=== PATIENT | male | born 1970 | race Caucasian/White ===

== ENCOUNTER 2021-08-16 22:20 | Emergency (ER) | payer OTHER ==
[~2021-08-16] VITALS: Ht 175.3 cm; Wt 59.0 kg
[~2021-08-16 22:20] MED LIST: ASPI325EC PO; BACL10; Bactrim Ds Tab1 EACH PO; Cipro500 MG PO; ERYT.5TO OD; GLIP5 PO; HYDACE5 PO; LISI20 PO; Lamisil At24 GM TOP; Lamisil250 MG PO; METF850; METF850 PO; Norco 5-325 Ta1 EACH PO; OXYC5 PO; ROSU5 PO; SILSUL1TC TOP; TOBR.3OPSO OP; ZESTRIL40 MG PO
[2021-08-17] MEDS ORDERED: Percocet 5-3251 EACH PO (01:07)
== END 2021-08-17 01:43 | disposition home or self-care (01) ==
LOC: ER 22:20
DX: S72.401A Unspecified fracture of lower end of right femur, initial encounter for closed fracture (principal); I10 Essential (primary) hypertension; E11.9 Type 2 diabetes mellitus without complications; Z87.891 Personal history of nicotine dependence; Z96.643 Presence of artificial hip joint, bilateral; W19.XXXA Unspecified fall, initial encounter
CPT/HCPCS: 29505; 73502; 73552; 96374; 96375; 96376; 99284-25; A9270; J1170; J2405

== ENCOUNTER 2021-10-07 08:00 | Day surgery (SDC) | payer OTHER ==
[~2021-10-07 08:00] MED LIST changes: +Percocet 5-3251 EACH PO
== END 2021-10-07 23:59 | disposition home or self-care (01) ==
LOC: WOUND 08:00
DX: L89.153 Pressure ulcer of sacral region, stage 3 (principal); G82.20 Paraplegia, unspecified; G83.4 Cauda equina syndrome; Z72.0 Tobacco use; Z88.5 Allergy status to narcotic agent
CPT/HCPCS: 99406; G0463

== ENCOUNTER 2022-01-25 10:18 | Inpatient (IN) | payer OTHER ==
[~2022-01-25] VITALS: Ht 170.2 cm; Wt 53.8 kg
[2022-01-25 11:33] LABS: BASOPHILS ABSOLUTE AUTO 0.11 K/mm3 (0.00-0.23); BASOPHILS PERCENT AUTO 1 % (0-2); EOSINOPHILS PERCENT AUTO 0 % (0-6); Hematocrit 34.5 % (37.0-53.0); Hemoglobin 12.3 g/dL (13.5-17.5); IMMATURE GRAN ABSOLUTE AUTO 0.28 K/mm3 (0.00-0.10); IMMATURE GRAN PERCENT AUTO 2 % (0-1); LYMPHOCYTES PERCENT AUTO 6 % (21-46); MONOCYTES ABSOLUTE AUTO 2.09 K/mm3 (0.16-1.47); MONOCYTES PERCENT AUTO 11 % (4-13); Mean Corpuscular HGB 33.1 pg (26.0-34.0); Mean Corpuscular HGB Conc 35.7 g/dL (31.5-36.5); Mean Corpuscular Volume 93 fL (80-100); Mean Platelet Volume 10.1 fL (9.1-12.4); NEUTROPHILS ABSOLUTE AUTO 14.95 K/mm3 (1.96-9.15); NEUTROPHILS PERCENT AUTO 81 % (41-73); Platelet Count 414 K/mm3 (150-400); RDW Coefficient Variation 12.3 % (11.7-14.2); RDW Standard Deviation 41.8 fL (35.1-46.3); Red Blood Cell Count 3.72 M/mm3 (4.30-5.90); White Blood Cell Count 18.53 K/mm3 (4.00-11.30)
[2022-01-25 11:44] LABS: Albumin/Globulin Ratio 0.4 (0.8-1.8); Bilirubin, Total 0.4 mg/dL (0.1-1.0); Bun/Creatinine Ratio 9.2 (12.0-20.0); Calcium, Blood 8.1 mg/dL (8.5-10.1); Creatinine, Blood 0.33 mg/dL (0.60-1.20); Potassium, Blood 3.4 mmol/L (3.5-5.5)
--- NOTE | 2022-01-25 15:20 | NUR ---
PT BROUGHT FROM ER TO [facility] VIA Yedda. PT IS A PARAPLEGIC W/ A GROIN ANIYA. PT HAS 2 IV IN RFA AND 1 IV IN LFA. PT REPORTS SOLID FOOD LAST NIGHT AT 1830 AND TODAY BLACK COFFEE AT 0500 AND A BEER AT 0900. PT STATES HE SELF-CATHS. LAST DONE AT 0800 WITH "VERY LITTLE OUT". PT IS A&O.
[2022-01-25] MEDS ORDERED: BACL10 PO (16:45)
--- NOTE | 2022-01-25 17:45 | NUR ---
Patient arrived from OR aty 1715 and received report from anesthestia and RN. Patient drowsy but able to communicate needs and is currently cleared. He assist with positioning and is currently sitting up watching TV. He has his classes and is mostly independent in room. He was incontinent of urine and placed small condom cath. Changed linen and dressing and applied mepelex dressing on coccyx where he as some old healing wound from being chair fast from [facility]. He is tolerating liquids without difficulty and stated does not want anything to eat. He has three IV and infusing 40 meq potassium, thiamine, folic acid and will start NS at 200 mlafter all are done. left number after she left, she was here for about an hour to check on him and went home. patient has been changed to surgical status. He stated last beer at 0800 and has 4-10 a day. VSS, He is on RA and sats >90%.
--- NOTE | 2022-01-26 00:45 | NUR ---
WOUND PACKING REPLACED PATIENT TRANSFERRED TO THE TOILET FOR BM AND PULLED PACKING OUT IN THE PROCESS. STERILE GAUZE SOAKED IN STERILE SALINE PACKED INTO WOUND AND COVERED WITH NEW ABD PAD AND NET BOTTOMS TO HOLD IN PLACE. CONDOM CATH REPLACED WELL D/T PATIENT PULLING OFF. PATIENT TOLERATED PROCEDURE WELL WITH 50MCG FENTANYL IV.
--- NOTE | 2022-01-26 06:36 | NUR ---
SHIFT SUMMARY PATIENTS WOUND REQUIRED REPACKING EARLY THIS MORNING D/T BECOMING DISLODGED WHILE GOING TO THE BATHROOM. STERILE WET TO DRY DRESSING PACKED AND COVERED WITH ABD AND MESH GARMENT. PATIENT REQUIRED MULTIPLE DOSES OF FENTANYL IV FOR PAIN CONTROL. CONDOM CATH REPLACED TWICE DURING SHIFT. LITTLE URINE OUTPUT THROUGH CATHETER, BUT QUESTIONABLE IF THERE WAS URINE OUTPUT WHEN ON TOILET. MORNING LABS PUSHED BACK TO LATER THIS MORNING D/T PATIENT SLEEPING. NO OTHER CHANGES DURING SHIFT.
[2022-01-26 07:14] LABS: BASOPHILS ABSOLUTE AUTO 0.06 K/mm3 (0.00-0.23); BASOPHILS PERCENT AUTO 1 % (0-2); EOSINOPHILS ABSOLUTE AUTO 0.02 K/mm3 (0.00-0.68); EOSINOPHILS PERCENT AUTO 0 % (0-6); Hematocrit 33.4 % (37.0-53.0); Hemoglobin 11.1 g/dL (13.5-17.5); IMMATURE GRAN ABSOLUTE AUTO 0.57 K/mm3 (0.00-0.10); IMMATURE GRAN PERCENT AUTO 5 % (0-1); LYMPHOCYTES ABSOLUTE AUTO 1.53 K/mm3 (0.84-5.20); LYMPHOCYTES PERCENT AUTO 13 % (21-46); MONOCYTES ABSOLUTE AUTO 1.64 K/mm3 (0.16-1.47); MONOCYTES PERCENT AUTO 14 % (4-13); Mean Corpuscular HGB 31.6 pg (26.0-34.0); Mean Corpuscular HGB Conc 33.2 g/dL (31.5-36.5); Mean Corpuscular Volume 95 fL (80-100); Mean Platelet Volume 10.1 fL (9.1-12.4); NEUTROPHILS PERCENT AUTO 67 % (41-73); Platelet Count 393 K/mm3 (150-400); RDW Coefficient Variation 12.6 % (11.7-14.2); Red Blood Cell Count 3.51 M/mm3 (4.30-5.90); White Blood Cell Count 11.62 K/mm3 (4.00-11.30)
[2022-01-26 07:30] LABS: Albumin, Blood 1.5 g/dL (3.4-5.0); Albumin/Globulin Ratio 0.4 (0.8-1.8); Bilirubin, Total 0.3 mg/dL (0.1-1.0); Bun/Creatinine Ratio 16.1 (12.0-20.0); Calcium, Blood 7.7 mg/dL (8.5-10.1); Creatinine, Blood 0.37 mg/dL (0.60-1.20); Potassium, Blood 3.8 mmol/L (3.5-5.5); Total Protein, Blood 5.5 g/dL (6.4-8.2)
--- NOTE | 2022-01-26 10:20 | NUR ---
Spiritual Care Attempted. Pt. is awake in bed and welcomes my visit. Pt. is pleasant and verbalizes anticpated transferfrom ICU to another room. Pt. declines the need for any significant spiritual support but verbalizes gratitude for the spiritual care visit.
--- NOTE | 2022-01-26 16:23 | NUR ---
SHIFT SUMMARY PT REMAINS ALERT AND ORIENTED. VS STABLE. BP REMAINS STABLE. O2 SATS ABOVE 90% ON RA. CONDOM CATH IN PLACE WITH CLEAR URINE OUTPUT. [place] AB[place] [facility] [place]. WOUND WAS CLEANED AND PACKED. NS INFUSING PER ORDERS. PT ABLE TO REPOSITION HIMSELF IN BED AND HAS BEEN ASSISTED EVERY 2 HOURS. PT MEDICATED FOR PAIN NEEDED PER EMAR. PT TO BE TRANSFERRED TO SURGICAL FLOOR. AWAITING CALL TO GIVE REPORT.
--- NOTE | 2022-01-26 16:45 | NUR ---
REPORT GIVEN TO ZULEMA FLYNN. PT TO BE TAKEN TO 210 BY WC
--- NOTE | 2022-01-26 18:20 | NUR ---
ARRIVAL TO UNIT PT ARRIVED TO UNIT FROM ICU, PT IN HIS OWN CHAIR WHEELING HIMSELF. TRANSFERS SELF TO BED. DENIES NEEDING FURTHER HELP IN ROOM. CONDOM CATHETER IN PLACE WHICH PATIENT MANAGES. DRESSING IN PLACE TO PERIRECTAL AREA. PLAN IS FOR NPO AT MIDNIGHT FOR FURTHER WASHOUT TOMORROW. PAIN MANAGED PER EMAR. IV FLUIDS INFUSING PER EMAR.
--- NOTE | 2022-01-26 19:49 | NUR ---
POSITIVE BLOOD CULTURES NOTIFIED BY HEMATOLOGY OF +[facility], [facility] IN [place]. NOTIFIED PHARMACIST SINDY WHO STATED PT CURRENT ABX ORDERS ARE ADEQUATE COVERAGE.
[2022-01-27 00:33] LABS: Hematocrit 32.1 % (37.0-53.0); Hemoglobin 10.7 g/dL (13.5-17.5); Mean Corpuscular HGB 32.6 pg (26.0-34.0); Mean Corpuscular HGB Conc 33.3 g/dL (31.5-36.5); Mean Corpuscular Volume 98 fL (80-100); Mean Platelet Volume 9.7 fL (9.1-12.4); Platelet Count 404 K/mm3 (150-400); RDW Coefficient Variation 12.7 % (11.7-14.2); RDW Standard Deviation 45.2 fL (35.1-46.3); Red Blood Cell Count 3.28 M/mm3 (4.30-5.90)
[2022-01-27 00:53] LABS: Vancomycin, Trough 5.3 ug/mL (5.0-10.0)
[2022-01-27 01:01] LABS: Albumin, Blood 1.6 g/dL (3.4-5.0); Anion Gap 14 mmol/L (6-16); Blood Urea Nitrogen 5 mg/dL (8-24); Bun/Creatinine Ratio 14.1 (12.0-20.0); CO2, Blood 18 mmol/L (21-32); Calcium, Blood 7.8 mg/dL (8.5-10.1); Chloride, Blood 101 mmol/L (98-108); Creatinine, Blood 0.36 mg/dL (0.60-1.20); Glomerular Filtration Rate 137 (60-); Glucose, Blood 167 mg/dL (70-99); Phosphorus, Blood 2.4 mg/dL (2.5-4.9); Potassium, Blood 3.3 mmol/L (3.5-5.5); Sodium, Blood 133 mmol/L (136-145)
--- NOTE | 2022-01-27 06:07 | NUR ---
SHIFT SUMMARY PATIENT ALERT AND ORIENTED WHEN AWAKE. PARAPLEGIC, TRANSFERS INDEPENDENTLY TO WHEELCHAIR AND TOILET. PERINEAL INCISION DRESSING AND MESH UNDERWEAR CHANGED THIS SHIFT. ROUTINE IV FLUIDS AND ABX. NPO AFTER MIDNIGHT FOR PLANNED REPEAT I&D TODAY WITH DR TOBAR. PAIN CONTROLLED WITH IV FENTANYL. WEARS CONDOM CATH, GOOD OUTPUT. BM DURING SENIOR JAVASCRIPT DEVELOPER.
--- NOTE | 2022-01-27 11:20 | NUR ---
Patient confirms NPO status and agrees with scheduled surgery. Patient reports completing Chlorhexadine shower X1 prior to admission to Day Surgery this am. Pre-Op teaching done. Pt verbalizes understanding.
--- NOTE | 2022-01-27 14:06 | NUR ---
PATIENT JUST CAME BACK FROM PACU TODAY FROM HIS SECOND I&D AT 1350. POD 0 I&D PERINEUM PATIENT IS A&OX4. VS ARE WNL AND IS ON RA WITH >90% OXYGEN SATS. PATIENT DENIES PAIN AT THIS TIME. HE IS TOLERATING SMALL AMOUNTS OF PO INTAKE. HE HAS GAUZE AND A PIN WILMER UNDERNEATH THE ABD PAD ON HIS PERINEUM THAT IS AT THIS TIME C/D/I. DENIES ANY NAUSEA OR VOMITING. CONDOM CATH IS IN PLACE AND PATENT WELL IS DRAINING PER GRAVITY YELLOW URINE. SIGNIFICANT OTHER IS AT BEDSIDE. PATIENT IS LAYING IN BED. CALL LIGHT WITHIN REACH.
--- NOTE | 2022-01-27 16:06 | NUR ---
SHIFT SUMMARY: POD 0 OF SECOND I&D TO PERINEUM AREA NO SIGNIFICANT CHANGES SINCE POST OP. A&OX4. VS ARE WNL AND IS ON RA. PAIN IS MANAGED WITH PO NORCO. PERINEUM HAS A PIN WILMER DRAIN WITH GAUZE AND ABD PAD WITH MESH UNDERWEAR THAT IS C/D/I AT THIS TIME. THE DRESSING HAS BEEN CHANGED TWICE ALREADY. HE IS TOLERATING PO INTAKE AND IS PASSING SMALL AMOUNTS OF GAS. CONDOM CATH IN PLACE AND IS DRAINING LIGHT YELLOW URINE PER GRAVITY. SIGNIFICANT OTHER IS AT BEDSIDE AND HELPS HIM MOVE FROM THE BED TO HIS PERSONAL WHEELCHAIR TO USE THE BATHROOM SINCE HE IS WHEELCHAIR BOUND. CALLS APPROPRIATELY. CALL LIGHT WITHIN REACH.
[2022-01-28 01:28] LABS: BASOPHILS ABSOLUTE AUTO 0.06 K/mm3 (0.00-0.23); BASOPHILS PERCENT AUTO 1 % (0-2); EOSINOPHILS ABSOLUTE AUTO 0.02 K/mm3 (0.00-0.68); EOSINOPHILS PERCENT AUTO 0 % (0-6); Hemoglobin 11.7 g/dL (13.5-17.5); IMMATURE GRAN ABSOLUTE AUTO 0.51 K/mm3 (0.00-0.10); IMMATURE GRAN PERCENT AUTO 5 % (0-1); LYMPHOCYTES ABSOLUTE AUTO 2.48 K/mm3 (0.84-5.20); LYMPHOCYTES PERCENT AUTO 24 % (21-46); MONOCYTES ABSOLUTE AUTO 0.98 K/mm3 (0.16-1.47); MONOCYTES PERCENT AUTO 10 % (4-13); Mean Corpuscular HGB 31.7 pg (26.0-34.0); Mean Corpuscular HGB Conc 33.4 g/dL (31.5-36.5); Mean Corpuscular Volume 95 fL (80-100); Mean Platelet Volume 9.8 fL (9.1-12.4); NEUTROPHILS ABSOLUTE AUTO 6.16 K/mm3 (1.96-9.15); NEUTROPHILS PERCENT AUTO 60 % (41-73); Platelet Count 499 K/mm3 (150-400); RDW Coefficient Variation 12.5 % (11.7-14.2); RDW Standard Deviation 43.8 fL (35.1-46.3); Red Blood Cell Count 3.69 M/mm3 (4.30-5.90); White Blood Cell Count 10.21 K/mm3 (4.00-11.30)
[2022-01-28 01:45] LABS: Vancomycin, Trough 9.4 ug/mL (5.0-10.0)
[2022-01-28 01:47] LABS: Bun/Creatinine Ratio 11.9 (12.0-20.0); Calcium, Blood 8.1 mg/dL (8.5-10.1); Creatinine, Blood 0.34 mg/dL (0.60-1.20); Potassium, Blood 3.5 mmol/L (3.5-5.5)
--- NOTE | 2022-01-28 08:29 | NUR ---
2108 MED PT IVB FOR PAIN.PT REPORTING HX NAUSEA WITH PO CAROLA AT TIMES.PT REPOSITIONS SELF AND USING GUAZE PADS WITH ABDS FOR PERINEUM TO CATCH DRNG PER RATNA DRAIN. PTS TISSUE SURROUNDING RATNA IS IRREGULAR EDGED TO OPENINGS. RECTUM APPEARS LIKE WITH ? HEMORRHOIDS ? JUST IRREG TISSUE. PT HAS BEEN CHANGING SOME OF HIS PADS INDEPENTANDTLY. WHEN HE WANTS ASSIST HE LETS STAFF KNOW.PT ALSO SELF CATHS AT HOME, BUT WAS REPORTED DURING SHIFT CHANGE PT CHOOSING TO USE CONDOM CATH INSTEAD AND REPORTED THIS HAS BEEN EFFECTIVE SO FAR.PT HAS HX PARAPLEGIA AND IS ABLE TO TRANSFER TO HIS CHAIR FOR BRP WITH SBA FOR IV POLES ETC.PT REPORTS HAS HAD LOOSE STOOLS,CONTINUED TO MONITOR AND PT DECIDED EDMOND SELF CATH CONDOM CATH WAS NOT STAYING IN PLACE. PT UPSET BY THIS STATES HE HAD BEEN LEAVING BORJA BAG ON FLOOR AND WAS UPSET THAT STAFF MOVED BAG FROM"FLOOR" TO BED RAIL STATING THIS WAS "CAUSE" OF CURRENT "LEAKING" TO CATH AT PLACEMENT SITE.PT VERB GREAT UPSET TONIGHT THAT STAFF WAS UNABLE TO OBTAIN CATHS FOR HIM TO USE THAT ARE IDENTICAL TO THE CATHS HE USES AT HOME.MULTIPLE OPTIONS WERE SHOWN AND OFFERED.HOWEVER, PT REFUSED AND USED ONE OF 2 HE HAD IN HIS BACK PACK.I ADVISED PT THAT I WAS NOT SURE IF IT WAS POSSIBLE FOR US TO OBTAIN IDENTICAL CATHS WE HAVE CERTAIN SUPPLIERS FOR OUR MEDICAL PRODUCTS USE.PT CONT TO VERB UPSET SAYING IT WAS RIDICULOUS PT SHOULD HAVE TO USE HIS OWN CATHETERS. PT ALSO PT OPTED TO LATER TO TRY ROXICODONE.ATE CRACKERS FIRST AND HAD NOT ISSUE WITH 1.PT REFUSED 2.PT DID VERB ADEQUATE CONTROL OF PAIN. DURING THE NIGHT, I WAS ASSISTING PT TO CHANGE PADS,LINEN ETC.PT WAS IRRITABLE ALREADY.I WAS PULLING BLANKET AND SHEET OVER PT AND HAD NOT CHANGED NEW GOWN YET, PT PULLED SHEETS AND BLANKETS OVER HIS CHEST AND STATED THE ONLY THING THAT WOUJLD MAKE HIM HAPPY IS TO BE LEFT ALONE. I LEFT ROOM AND PT LATER VERB TO ELEMENTARY ELL TEACHER NURSE "FORGOT GOWN" I TOLD ELEMENTARY ELL TEACHER PT HAD BLANKETS ON AND SAID HE NEEDED NOTHING ELSE AND DESIRED ME TO LEAVE.NURSING COOK AT SCHOOL AWARE OF ABOVE.
--- NOTE | 2022-01-28 15:31 | NUR ---
CHANGED DRESSING TO BUTTOCKS/PERINEUM WHEN PT HAD BEDBATH/LINEN CHANGE. PT GOT UP TO , WENT IN RESTROOM AND VOIDED IN TOILET, BRUSHED TEETH, COMBED HAIR. WENT OUT OF ROOM INDEPENDENTLY IN , NOW BACK IN ROOM.
--- NOTE | 2022-01-28 17:05 | NUR ---
SUMMARY NO ACUTE CHANGES T/O SHIFT. PT SELF CATHS, USING SUPPLIES FROM HOME, REFUSING OUR SUPPLIES. MEDICATED T/O SHIFT FOR PAIN TO PERINEUM. PT HAD BED BATH AND DRESSING CHANGED THIS AFTERNOON. COVERED CBGS PER ORDERS T/O DAY; NO COVERAGE REQUIRED FOR DINNER. CALL LIGHT IN REACH, DENIES ANY NEEDS AT THIS TIME.
[2022-01-29 06:01] LABS: BASOPHILS ABSOLUTE AUTO 0.07 K/mm3 (0.00-0.23); BASOPHILS PERCENT AUTO 0 % (0-2); EOSINOPHILS ABSOLUTE AUTO 0.07 K/mm3 (0.00-0.68); EOSINOPHILS PERCENT AUTO 0 % (0-6); Hematocrit 29.6 % (37.0-53.0); Hemoglobin 10.4 g/dL (13.5-17.5); IMMATURE GRAN ABSOLUTE AUTO 0.28 K/mm3 (0.00-0.10); IMMATURE GRAN PERCENT AUTO 2 % (0-1); LYMPHOCYTES ABSOLUTE AUTO 2.49 K/mm3 (0.84-5.20); LYMPHOCYTES PERCENT AUTO 14 % (21-46); MONOCYTES ABSOLUTE AUTO 0.83 K/mm3 (0.16-1.47); MONOCYTES PERCENT AUTO 5 % (4-13); Mean Corpuscular HGB 32.3 pg (26.0-34.0); Mean Corpuscular HGB Conc 35.1 g/dL (31.5-36.5); Mean Corpuscular Volume 92 fL (80-100); Mean Platelet Volume 9.4 fL (9.1-12.4); NEUTROPHILS PERCENT AUTO 79 % (41-73); Platelet Count 506 K/mm3 (150-400); RDW Coefficient Variation 12.3 % (11.7-14.2); RDW Standard Deviation 41.4 fL (35.1-46.3); Red Blood Cell Count 3.22 M/mm3 (4.30-5.90); White Blood Cell Count 17.84 K/mm3 (4.00-11.30)
[2022-01-29 06:33] LABS: Albumin, Blood 1.7 g/dL (3.4-5.0); Albumin/Globulin Ratio 0.4 (0.8-1.8); Bilirubin, Total 0.2 mg/dL (0.1-1.0); Bun/Creatinine Ratio 5.1 (12.0-20.0); Calcium, Blood 7.9 mg/dL (8.5-10.1); Creatinine, Blood 0.4 mg/dL (0.60-1.20); Globulin, Blood 3.9 g/dL (2.2-4.0); Potassium, Blood 3.3 mmol/L (3.5-5.5); Total Protein, Blood 5.6 g/dL (6.4-8.2)
--- NOTE | 2022-01-29 08:05 | NUR ---
SUMMARY PT REPORTS SLEPT WELL AND PAIN MEDS ARE EFFECTIVE.
--- NOTE | 2022-01-29 16:43 | NUR ---
SHIFT SUMMARY PATIENT ALERT AND ORIENTED THROUGHOUT SHIFT. PERINEAL DRESSING CHANGED TWICE THIS SHIFT. PATIENT TRANFERS SELF TO WHEELCHAIR AND TOILET. TOLERATING ADA DIET AND LIQUIDS. ROUTINE ABX. COVERED PER SLIDING SCALE. PLAN IS TO DISCHARGE HOME ON ABX ONCE FINAL CULTURE IS COMPLETE. MEDICATED FOR PAIN PER EMAR.
--- NOTE | 2022-01-30 06:36 | NUR ---
SUMMARY NO ACUITE CHANGES TONIGHT.PT STRAIGHT CATHS OVER TOILET WHICH DOES NOT ALLOW FOR MEASURING.
--- NOTE | 2022-01-30 07:02 | NUR ---
SUMMARY PT HAD EPISODE OF DESAT TO 82-83% @2225,NEBULIZER WAS GIVEN AND RT ADJUSTED HI FLOW TO 15L AND 30 %FI02. PT WITH NO INCREASED WOB.NURSE AND RT SX PT TONIGHT WITH THICK WHITE RETURN.CONTINUED TO MONITOR BIOX AND RT MADE ADJUSTMENTS NEEDED.PT CONTINUED WITH MILD INTERCOSTAL RETRACTIONS.CURRENTLY AT 15L AND 28%.SLEEPING AT THIS TIME.
--- NOTE | 2022-01-30 16:13 | NUR ---
SHIFT SUMMARY POD 3 I&D PERINEUM DRAIN REMOVED THIS MORNING BY DR. LILLY. DRESSING CHANGED TWICE TODAY. EDUCATION PROVIDED TO PATIENT ABOUT CHANGING HIS OWN DRESSING AND HAND HYGEINE WITH DRESSING CHANGES. TONIE REMAINS IND IN ROOM, HE TRANSFERS SELF WELL TO WHEELCHAIR AND BACK, FREQUENT WALKS OUTSIDE TODAY. PT SELF CATHS BUT DOES NOT MEASURE OUTPUT. TOLERATING PO WELL. PAIN MANAGED WELL PER EMAR.
--- NOTE | 2022-01-31 04:41 | NUR ---
SHIFT SUMMARY: PT WAS ABLE TO SLEEP COMFORTABLY AFTER PAIN WAS WELL MANAGED. C/O MODERATE PAIN IN THE PERINEUM AREA. EXUDATE HAS A YELLOW/GREEN APPEARENCE. KERLEX AND ABD PAD WERE CHANGED. PT USING WHEELCHAIR INDEPENDENTLY WITH MINIMAL ASSISTANCE. EATING, DRINKING, VOIDING. PT IS INDEPENDENTLY USING A STRAIGHT CATHETER IN ROOM. MESH UNDERWEAR IN PLACE. PT IS CURRENTLY RESTING AT THIS TIME. PLANS TO DISCHARGE TODAY.
--- NOTE | 2022-01-31 16:19 | NUR ---
SHIFT SUMMARY POD4 BALWINDER ANAL I&D, A/O X4, VSS, TOLERATING PO, PAIN MANAGED PER EMAR, ABLE TO GET AROUND SELF TRANSFERRING TO HIS WC WHICH HE DOES AT BASELINE. INCISION PACKED TWICE THIS SHIFT WITH PT TOLERATING IT WELL BOTH TIMES, PICC LINE ESTABLISHED FOR OUTPATIENT IV ABX INFUSIONS. NO ACUTE EVENTS THIS SHIFT. CALL LIGHT IN REACH, WILL CTM AND REPORT TO ONCOMING CHRISTIANO RN.
--- NOTE | 2022-02-01 04:45 | NUR ---
SHIFT SUMMARY: PT REMAINS A&O. PAIN WELL MANAGED PER EMAR ORDERS. ABD PAD, KERLEX, AND MESH UNDERWEAR REMAIN IN PLACE AND CHANGED DURING SHIFT. PT TOLERATING PO FLUIDS AND FOOD WELL. REPORTED HAVING A LOOSE BM. PT IS INDEPENDENT WITH USING WHEELCHAIR IN THE ROOM. VITAL SIGNS STABLE. PT IS RESTING AT THIS TIME AND CALL LIGHT REMAINS IN REACH.
[2022-02-01] MEDS ORDERED: CEFAZOLIN2 GM/50 M3 IV (10:22)
[2022-02-01] MEDS ORDERED: VISBIOME 112.51 EACH PO (10:23)
[2022-02-01] MEDS ORDERED: NICO21TP TOP (10:23)
[2022-02-01] MEDS ORDERED: OXYC5 PO (10:23)
--- NOTE | 2022-02-01 14:31 | NUR ---
DISCHARGE NOTE: PATIENT AND PATIENTS WERE EDUCATED ON DISCHARGE INSTRUCTIONS AND PICC LINE INSTRUCTIONS. BOTH OF THEM VERBALIZED UNDERSTANDING OF INSTRUCTIONS. PATIENT HAS HIS HARD PERSCRIPTION FOR PAIN MEDICATIONS WITH HIM. HIS OTHER NEW PERSCRIPTIONS HAVE BEEN FAXED TO HIS PREFERRED PHARMACY. PICC LINE IS TO BE REMAINED SINCE HE IS RECIEVING IV ABX AT HOME WITH HOME HEALTH. PAIN IS MANAGED WITH PO PAIN MEDICATIONS. PATIENT PERINEUM SITE HAS BEEN CHANGED AND IS C/D/I. PATIENT HAS SUPPLIES READY. HE IS DRESSED AND HAS ITEMS IN THE ROOM GATHERED. PICC LINE IS CLAMPED AND WNL. HOME HEALTH IS ON BOARD AND WILL SEE THE PATIENT TOMORROW. HE IS WHEELCHAIRING HIMSELF OUT TO HIS 'S CAR TO BE TAKEN HOME.
== END 2022-02-01 14:41 | disposition home health service (06) | DRG 854 ==
LOC: ER 10:18 → ICUW 14:35 → SURS 14:35 → ICUW 16:07 → SURS 01-26 17:05
PROVIDERS: Internal Medicine; Nurse Practitioner Acute Care; Physician Assistant; Surgery; ADMIT Hospitalist
PROC: 0JBB0ZZ Excision of Perineum Subcutaneous Tissue and Fascia, Open Approach (ICD-10-PCS; 2022-01-25)
PROC: 0V950ZZ Drainage of Scrotum, Open Approach (ICD-10-PCS; principal; 2022-01-25 15:15)
PROC: 0J9B0ZZ Drainage of Perineum Subcutaneous Tissue and Fascia, Open Approach (ICD-10-PCS; 2022-01-27)
DX: A41.9 Sepsis, unspecified organism (principal); E87.1 Hypo-osmolality and hyponatremia; E11.9 Type 2 diabetes mellitus without complications; I10 Essential (primary) hypertension; N49.3 Fournier gangrene; E86.1 Hypovolemia; F10.20 Alcohol dependence, uncomplicated; E87.6 Hypokalemia; F17.200 Nicotine dependence, unspecified, uncomplicated; Z79.82 Long term (current) use of aspirin; Z79.899 Other long term (current) drug therapy; Z79.84 Long term (current) use of oral hypoglycemic drugs; Z88.6 Allergy status to analgesic agent; Z88.5 Allergy status to narcotic agent; Z88.8 Allergy status to other drugs, medicaments and biological substances; Z98.890 Other specified postprocedural states
CPT/HCPCS: 36415; 36569; 51798; 74177; 76870; 80048; 80053; 80069; 80202; 82947; 83605; 85025; 85027; 87040; 87070; 87075; 87077; 87147; 87186; 87205; 93306; 96365-59; 96367-59; 96368; 96375-59; 99285-25; A9270; C1751; J0690; J1100; J1170; J1815; J2405; J2543; J2704; J2710; J2795; J3010; J3370; J3411; J3480; J7030; J7050; J7120; Q9967

== ENCOUNTER 2022-02-10 02:32 | Day surgery (SDC) | payer OTHER ==
[~2022-02-10 02:32] MED LIST changes: +BACL10 PO; +CEFAZOLIN2 GM/50 M3 IV; +NICO21TP TOP; +VISBIOME 112.51 EACH PO
== END 2022-02-10 23:40 | disposition home or self-care (01) ==
LOC: WOUND 02:32
DX: T81.89XA Other complications of procedures, not elsewhere classified, initial encounter (principal); G82.20 Paraplegia, unspecified; F17.200 Nicotine dependence, unspecified, uncomplicated; E11.52 Type 2 diabetes mellitus with diabetic peripheral angiopathy with gangrene; N49.3 Fournier gangrene
CPT/HCPCS: A9270; G0463

== ENCOUNTER 2022-02-17 00:27 | Day surgery (SDC) | payer OTHER | END 2022-02-17 11:43 | disposition home or self-care (01) | LOC: ATC 00:27 | DX: N49.3 Fournier gangrene (principal); G82.20 Paraplegia, unspecified; E11.9 Type 2 diabetes mellitus without complications; I10 Essential (primary) hypertension; Z88.5 Allergy status to narcotic agent; Z87.891 Personal history of nicotine dependence; Z79.84 Long term (current) use of oral hypoglycemic drugs | CPT/HCPCS: 99211 ==

== ENCOUNTER 2022-02-17 01:19 | Day surgery (SDC) | payer OTHER | END 2022-02-17 23:31 | disposition home or self-care (01) | LOC: WOUND 01:19 | DX: S31.501D Unspecified open wound of unspecified external genital organs, male, subsequent encounter (principal); N49.3 Fournier gangrene; G82.20 Paraplegia, unspecified; I10 Essential (primary) hypertension; E11.9 Type 2 diabetes mellitus without complications; F17.200 Nicotine dependence, unspecified, uncomplicated | CPT/HCPCS: A9270; G0463 ==

== ENCOUNTER 2022-02-24 00:47 | Day surgery (SDC) | payer OTHER | END 2022-02-24 23:41 | disposition home or self-care (01) | LOC: WOUND 00:47 | DX: N49.3 Fournier gangrene (principal); S31.501D Unspecified open wound of unspecified external genital organs, male, subsequent encounter; E11.9 Type 2 diabetes mellitus without complications; F17.200 Nicotine dependence, unspecified, uncomplicated; I10 Essential (primary) hypertension; G82.20 Paraplegia, unspecified | CPT/HCPCS: A9270; G0463 ==

== ENCOUNTER 2022-02-24 13:27 | Emergency (ER) | payer OTHER ==
[~2022-02-24] VITALS: Ht 177.8 cm; Wt 59.0 kg
[2022-02-24 18:17] LABS: BASOPHILS ABSOLUTE AUTO 0.04 K/mm3 (0.00-0.23); BASOPHILS PERCENT AUTO 0 % (0-2); EOSINOPHILS ABSOLUTE AUTO 0.02 K/mm3 (0.00-0.68); EOSINOPHILS PERCENT AUTO 0 % (0-6); Hematocrit 31.8 % (37.0-53.0); Hemoglobin 11.3 g/dL (13.5-17.5); IMMATURE GRAN ABSOLUTE AUTO 0.06 K/mm3 (0.00-0.10); IMMATURE GRAN PERCENT AUTO 0 % (0-1); LYMPHOCYTES ABSOLUTE AUTO 1.97 K/mm3 (0.84-5.20); LYMPHOCYTES PERCENT AUTO 14 % (21-46); MONOCYTES ABSOLUTE AUTO 1.67 K/mm3 (0.16-1.47); MONOCYTES PERCENT AUTO 12 % (4-13); Mean Corpuscular HGB 30.3 pg (26.0-34.0); Mean Corpuscular HGB Conc 35.5 g/dL (31.5-36.5); Mean Corpuscular Volume 85 fL (80-100); Mean Platelet Volume 9.9 fL (9.1-12.4); NEUTROPHILS ABSOLUTE AUTO 10.77 K/mm3 (1.96-9.15); NEUTROPHILS PERCENT AUTO 74 % (41-73); Platelet Count 498 K/mm3 (150-400); RDW Coefficient Variation 12.5 % (11.7-14.2); Red Blood Cell Count 3.73 M/mm3 (4.30-5.90); White Blood Cell Count 14.53 K/mm3 (4.00-11.30)
[2022-02-24 18:45] LABS: Albumin, Blood 2.5 g/dL (3.4-5.0); Albumin/Globulin Ratio 0.5 (0.8-1.8); Bilirubin, Total 0.3 mg/dL (0.1-1.0); Bun/Creatinine Ratio 10.4 (12.0-20.0); Calcium, Blood 8.9 mg/dL (8.5-10.1); Creatinine, Blood 0.39 mg/dL (0.60-1.20); Globulin, Blood 5.2 g/dL (2.2-4.0); Potassium, Blood 3.6 mmol/L (3.5-5.5); Total Protein, Blood 7.7 g/dL (6.4-8.2)
[2022-02-24 20:59] LABS: Source, Urine Straight Cath
[2022-02-24 21:04] LABS: Appearance, Urine Bloody (Clear); Bilirubin, Urine Neg (Neg); Blood, Urine 5+ (Neg); Color, Urine Red (P-Yellow); Glucose Qualitative, Urine 3+ (Neg); Ketones, Urine 3+ (Neg); Leukocyte Esterase, Urine 3+ (Neg); Nitrite, Urine Neg (Neg); Protein, Urine 3+ (Neg); Urobilinogen, Urine NORM (Normal)
[2022-02-24 21:12] LABS: Bacteria Many /hpf; Red Blood Cells, Urine TNTC /hpf (0-2); White Blood Cells, Urine 25-50 /hpf (0-5)
[2022-02-24 21:16] LABS: Squamous Epithelial Cells Rare /hpf (Few)
== END 2022-02-25 02:27 | disposition short-term general hospital (02) ==
LOC: ER 13:27
PROVIDERS: Physician Assistant
DX: R31.9 Hematuria, unspecified (principal); E11.9 Type 2 diabetes mellitus without complications; I10 Essential (primary) hypertension; F17.200 Nicotine dependence, unspecified, uncomplicated; Z79.84 Long term (current) use of oral hypoglycemic drugs; Z79.899 Other long term (current) drug therapy
CPT/HCPCS: 36415; 51798; 74177; 80053; 81001; 85025; 87077; 87086; 87186; Q9967

== ENCOUNTER → 2022-03-09 | Outpatient (CLI) | payer OTHER ==
[2022-03-09 13:56] LABS: BASOPHILS ABSOLUTE AUTO 0.07 K/mm3 (0.00-0.23); BASOPHILS PERCENT AUTO 1 % (0-2); EOSINOPHILS ABSOLUTE AUTO 0.13 K/mm3 (0.00-0.68); EOSINOPHILS PERCENT AUTO 1 % (0-6); Hematocrit 30.8 % (37.0-53.0); Hemoglobin 9.9 g/dL (13.5-17.5); IMMATURE GRAN ABSOLUTE AUTO 0.04 K/mm3 (0.00-0.10); IMMATURE GRAN PERCENT AUTO 0 % (0-1); LYMPHOCYTES ABSOLUTE AUTO 2.59 K/mm3 (0.84-5.20); LYMPHOCYTES PERCENT AUTO 26 % (21-46); MONOCYTES ABSOLUTE AUTO 0.68 K/mm3 (0.16-1.47); MONOCYTES PERCENT AUTO 7 % (4-13); Mean Corpuscular HGB 28.5 pg (26.0-34.0); Mean Corpuscular HGB Conc 32.1 g/dL (31.5-36.5); Mean Corpuscular Volume 89 fL (80-100); Mean Platelet Volume 10.1 fL (9.1-12.4); NEUTROPHILS PERCENT AUTO 65 % (41-73); Platelet Count 844 K/mm3 (150-400); RDW Coefficient Variation 14.6 % (11.7-14.2); RDW Standard Deviation 47.3 fL (35.1-46.3); Red Blood Cell Count 3.47 M/mm3 (4.30-5.90); White Blood Cell Count 10.11 K/mm3 (4.00-11.30)
[2022-03-09 16:50] LABS: Albumin, Blood 2.5 g/dL (3.4-5.0); Albumin/Globulin Ratio 0.5 (0.8-1.8); Bilirubin, Total 0.2 mg/dL (0.1-1.0); Bun/Creatinine Ratio 13.2 (12.0-20.0); C-REACTIVE PROTEIN, EXT RANGE 1.44 mg/dL (0.000-0.300); Calcium, Blood 9.2 mg/dL (8.5-10.1); Creatinine, Blood 0.3 mg/dL (0.60-1.20); Globulin, Blood 4.9 g/dL (2.2-4.0); Potassium, Blood 4.4 mmol/L (3.5-5.5); Total Protein, Blood 7.4 g/dL (6.4-8.2)
== END ==
LOC: LAB HH 11:00
PROVIDERS: Internal Medicine Infectious Disease
DX: R78.81 Bacteremia (principal); G82.22 Paraplegia, incomplete
CPT/HCPCS: 80053; 85025; 86140

== ENCOUNTER 2022-03-10 00:55 | Day surgery (SDC) | payer OTHER | END 2022-03-10 23:25 | disposition home or self-care (01) | LOC: WOUND 00:55 | DX: N49.3 Fournier gangrene (principal); S31.501D Unspecified open wound of unspecified external genital organs, male, subsequent encounter; L89.153 Pressure ulcer of sacral region, stage 3; G83.4 Cauda equina syndrome; G82.20 Paraplegia, unspecified; E11.9 Type 2 diabetes mellitus without complications; F17.200 Nicotine dependence, unspecified, uncomplicated; I10 Essential (primary) hypertension | CPT/HCPCS: G0463 ==

== ENCOUNTER 2022-03-17 00:29 | Day surgery (SDC) | payer OTHER | END 2022-03-17 22:52 | disposition home or self-care (01) | LOC: WOUND 00:29 | DX: T81.89XA Other complications of procedures, not elsewhere classified, initial encounter (principal); F17.200 Nicotine dependence, unspecified, uncomplicated; N49.3 Fournier gangrene | CPT/HCPCS: A9270; G0463 ==

== ENCOUNTER 2022-03-29 02:20 | Day surgery (SDC) | payer OTHER | END 2022-03-29 23:06 | disposition home or self-care (01) | LOC: WOUND 02:20 | DX: T81.89XA Other complications of procedures, not elsewhere classified, initial encounter (principal); G82.20 Paraplegia, unspecified; I10 Essential (primary) hypertension; E11.9 Type 2 diabetes mellitus without complications; N49.3 Fournier gangrene; L89.153 Pressure ulcer of sacral region, stage 3 | CPT/HCPCS: G0463 ==

== ENCOUNTER → 2022-04-03 | Outpatient (CLI) | payer OTHER ==
[2022-04-03 12:47] LABS: Appearance, Urine Hazy (Clear); Bilirubin, Urine Neg (Neg); Blood, Urine 2+ (Neg); Color, Urine Yellow (P-Yellow); Glucose Qualitative, Urine 4+ (Neg); Ketones, Urine 3+ (Neg); Leukocyte Esterase, Urine 3+ (Neg); Nitrite, Urine Neg (Neg); Protein, Urine 2+ (Neg); Specific Gravity, Urine 1.005 (1.003-1.022); Urobilinogen, Urine NORM (Normal)
[2022-04-03 13:03] LABS: Bacteria Few /hpf; Squamous Epithelial Cells Rare /hpf (Few); Transitional Epithelial Cells Rare /hpf (0-Rare); White Blood Cells, Urine TNTC /hpf (0-5); Yeast/Fungi Urine Mod /hpf
== END | disposition home or self-care (01) ==
LOC: LAB SHORT 10:19 → LAB 10:19
PROVIDERS: Urology Female Pelvic Medicine and Reconstructive Surgery
DX: Z01.812 Encounter for preprocedural laboratory examination (principal); R33.8 Other retention of urine
CPT/HCPCS: 81001; 87086

== ENCOUNTER 2022-04-14 01:09 | Day surgery (SDC) | payer OTHER | END 2022-04-14 23:17 | disposition home or self-care (01) | LOC: WOUND 01:09 | DX: S31.839A Unspecified open wound of anus, initial encounter (principal); L89.153 Pressure ulcer of sacral region, stage 3; N49.3 Fournier gangrene; S31.501D Unspecified open wound of unspecified external genital organs, male, subsequent encounter | CPT/HCPCS: A9270; G0463 ==

== ENCOUNTER 2022-04-28 00:20 | Day surgery (SDC) | payer OTHER | END 2022-04-28 23:33 | disposition home or self-care (01) | LOC: WOUND 00:20 | DX: N49.3 Fournier gangrene (principal); L89.153 Pressure ulcer of sacral region, stage 3; S31.501D Unspecified open wound of unspecified external genital organs, male, subsequent encounter; I10 Essential (primary) hypertension; E11.9 Type 2 diabetes mellitus without complications; G82.20 Paraplegia, unspecified; F17.200 Nicotine dependence, unspecified, uncomplicated | CPT/HCPCS: G0463 ==

== ENCOUNTER 2022-05-04 04:07 | Day surgery (SDC) | payer OTHER | END 2022-05-04 22:51 | disposition home or self-care (01) | LOC: WOUND 04:07 | DX: T81.89XA Other complications of procedures, not elsewhere classified, initial encounter (principal); N49.3 Fournier gangrene; L89.153 Pressure ulcer of sacral region, stage 3 | CPT/HCPCS: G0463 ==

== ENCOUNTER 2022-05-11 01:11 | Day surgery (SDC) | payer OTHER | END 2022-05-11 22:46 | disposition home or self-care (01) | LOC: WOUND 01:11 | DX: L89.153 Pressure ulcer of sacral region, stage 3 (principal); S31.501D Unspecified open wound of unspecified external genital organs, male, subsequent encounter; N49.3 Fournier gangrene; W19.XXXD Unspecified fall, subsequent encounter | CPT/HCPCS: G0463 ==

== ENCOUNTER 2022-05-26 01:54 | Day surgery (SDC) | payer OTHER | END 2022-05-26 22:51 | disposition home or self-care (01) | LOC: WOUND 01:54 | DX: S31.501A Unspecified open wound of unspecified external genital organs, male, initial encounter (principal); N49.3 Fournier gangrene; E11.9 Type 2 diabetes mellitus without complications; I10 Essential (primary) hypertension; G82.20 Paraplegia, unspecified; F17.200 Nicotine dependence, unspecified, uncomplicated | CPT/HCPCS: A9270; G0463 ==

== ENCOUNTER 2022-06-02 01:49 | Day surgery (SDC) | payer OTHER | END 2022-06-02 22:53 | disposition home or self-care (01) | LOC: WOUND 01:49 | DX: S31.501A Unspecified open wound of unspecified external genital organs, male, initial encounter (principal); N49.3 Fournier gangrene; L89.153 Pressure ulcer of sacral region, stage 3; X58.XXXA Exposure to other specified factors, initial encounter | CPT/HCPCS: A9270; G0463 ==

== ENCOUNTER 2022-06-09 01:15 | Day surgery (SDC) | payer OTHER | END 2022-06-10 22:49 | disposition home or self-care (01) | LOC: WOUND 01:15 | DX: S31.501A Unspecified open wound of unspecified external genital organs, male, initial encounter (principal); L89.153 Pressure ulcer of sacral region, stage 3; N49.3 Fournier gangrene | CPT/HCPCS: A9270; G0463 ==

== ENCOUNTER 2022-06-16 00:12 | Day surgery (SDC) | payer OTHER | END 2022-06-16 23:53 | disposition home or self-care (01) | LOC: WOUND 00:12 | DX: N49.3 Fournier gangrene (principal); L89.153 Pressure ulcer of sacral region, stage 3; S31.501A Unspecified open wound of unspecified external genital organs, male, initial encounter | CPT/HCPCS: G0463 ==

== ENCOUNTER 2022-06-30 00:44 | Day surgery (SDC) | payer OTHER | END 2022-06-30 23:17 | disposition home or self-care (01) | LOC: WOUND 00:44 | DX: L89.153 Pressure ulcer of sacral region, stage 3 (principal); E11.52 Type 2 diabetes mellitus with diabetic peripheral angiopathy with gangrene; N49.3 Fournier gangrene; S31.501D Unspecified open wound of unspecified external genital organs, male, subsequent encounter; X58.XXXD Exposure to other specified factors, subsequent encounter; G82.20 Paraplegia, unspecified; F17.200 Nicotine dependence, unspecified, uncomplicated | CPT/HCPCS: G0463 ==

== ENCOUNTER 2022-07-21 02:17 | Day surgery (SDC) | payer OTHER | END 2022-07-21 22:59 | disposition home or self-care (01) | LOC: WOUND 02:17 | DX: T81.89XA Other complications of procedures, not elsewhere classified, initial encounter (principal); E11.52 Type 2 diabetes mellitus with diabetic peripheral angiopathy with gangrene; N49.3 Fournier gangrene; L89.153 Pressure ulcer of sacral region, stage 3 | CPT/HCPCS: G0463 ==

== ENCOUNTER 2022-08-04 02:17 | Day surgery (SDC) | payer OTHER | END 2022-08-04 22:49 | disposition home or self-care (01) | LOC: WOUND 02:17 | DX: T81.89XA Other complications of procedures, not elsewhere classified, initial encounter (principal); L89.153 Pressure ulcer of sacral region, stage 3; S31.501D Unspecified open wound of unspecified external genital organs, male, subsequent encounter; N49.3 Fournier gangrene | CPT/HCPCS: G0463 ==

== ENCOUNTER 2022-08-25 03:30 | Day surgery (SDC) | payer OTHER | END 2022-08-25 22:42 | disposition home or self-care (01) | LOC: WOUND 03:30 | DX: S31.501D Unspecified open wound of unspecified external genital organs, male, subsequent encounter (principal); W19.XXXD Unspecified fall, subsequent encounter; L89.153 Pressure ulcer of sacral region, stage 3; N49.3 Fournier gangrene; E11.9 Type 2 diabetes mellitus without complications | CPT/HCPCS: G0463 ==

== ENCOUNTER 2022-09-15 01:20 | Day surgery (SDC) | payer OTHER | END 2022-09-17 22:42 | disposition home or self-care (01) | LOC: WOUND 01:20 | DX: S31.839D Unspecified open wound of anus, subsequent encounter (principal); X58.XXXD Exposure to other specified factors, subsequent encounter; L89.153 Pressure ulcer of sacral region, stage 3; N49.3 Fournier gangrene; E11.9 Type 2 diabetes mellitus without complications; F17.200 Nicotine dependence, unspecified, uncomplicated; G83.4 Cauda equina syndrome; G82.20 Paraplegia, unspecified | CPT/HCPCS: G0463 ==

== ENCOUNTER 2022-09-22 02:46 | Day surgery (SDC) | payer OTHER | END 2022-09-24 22:56 | disposition home or self-care (01) | LOC: WOUND 02:46 | DX: L89.153 Pressure ulcer of sacral region, stage 3 (principal); S31.501D Unspecified open wound of unspecified external genital organs, male, subsequent encounter; X58.XXXD Exposure to other specified factors, subsequent encounter; N49.3 Fournier gangrene | CPT/HCPCS: G0463 ==

== ENCOUNTER 2022-10-13 01:09 | Day surgery (SDC) | payer OTHER | END 2022-10-13 23:07 | disposition home or self-care (01) | LOC: WOUND 01:09 | DX: L89.153 Pressure ulcer of sacral region, stage 3 (principal); S31.501D Unspecified open wound of unspecified external genital organs, male, subsequent encounter; N49.3 Fournier gangrene | CPT/HCPCS: G0463 ==

== ENCOUNTER 2022-12-08 00:49 | Day surgery (SDC) | payer OTHER | END 2022-12-08 22:54 | disposition home or self-care (01) | LOC: WOUND 00:49 | DX: L89.153 Pressure ulcer of sacral region, stage 3 (principal); S31.501D Unspecified open wound of unspecified external genital organs, male, subsequent encounter; N49.3 Fournier gangrene; G82.20 Paraplegia, unspecified | CPT/HCPCS: G0463 ==

== ENCOUNTER 2022-12-29 00:56 | Day surgery (SDC) | payer OTHER | END 2022-12-29 22:57 | disposition home or self-care (01) | LOC: WOUND 00:56 | DX: L89.153 Pressure ulcer of sacral region, stage 3 (principal); S31.501D Unspecified open wound of unspecified external genital organs, male, subsequent encounter; N49.3 Fournier gangrene | CPT/HCPCS: G0463 ==

== ENCOUNTER 2023-01-12 00:49 | Day surgery (SDC) | payer OTHER | END 2023-01-12 22:47 | disposition home or self-care (01) | LOC: WOUND 00:49 | DX: L89.153 Pressure ulcer of sacral region, stage 3 (principal); S31.501D Unspecified open wound of unspecified external genital organs, male, subsequent encounter; N49.3 Fournier gangrene | CPT/HCPCS: G0463 ==

== ENCOUNTER 2023-02-02 00:30 | Day surgery (SDC) | payer OTHER | END 2023-02-02 22:49 | disposition home or self-care (01) | LOC: WOUND 00:30 | DX: L89.153 Pressure ulcer of sacral region, stage 3 (principal); S31.501D Unspecified open wound of unspecified external genital organs, male, subsequent encounter; N49.3 Fournier gangrene; E11.9 Type 2 diabetes mellitus without complications | CPT/HCPCS: G0463 ==

== ENCOUNTER 2023-02-16 05:05 | Day surgery (SDC) | payer OTHER | END 2023-02-16 22:42 | disposition home or self-care (01) | LOC: WOUND 05:05 | DX: L89.153 Pressure ulcer of sacral region, stage 3 (principal); S31.501D Unspecified open wound of unspecified external genital organs, male, subsequent encounter; N49.3 Fournier gangrene | CPT/HCPCS: G0463 ==

== ENCOUNTER 2023-03-09 01:56 | Day surgery (SDC) | payer OTHER | END 2023-03-09 22:50 | disposition home or self-care (01) | LOC: WOUND 01:56 | DX: L89.153 Pressure ulcer of sacral region, stage 3 (principal); N49.3 Fournier gangrene; S31.501D Unspecified open wound of unspecified external genital organs, male, subsequent encounter; F17.200 Nicotine dependence, unspecified, uncomplicated | CPT/HCPCS: G0463 ==

== ENCOUNTER 2023-04-06 03:06 | Day surgery (SDC) | payer OTHER | END 2023-04-06 23:11 | disposition home or self-care (01) | LOC: WOUND 03:06 | DX: L89.153 Pressure ulcer of sacral region, stage 3 (principal); N49.3 Fournier gangrene; I10 Essential (primary) hypertension; E11.9 Type 2 diabetes mellitus without complications; T81.31XD Disruption of external operation (surgical) wound, not elsewhere classified, subsequent encounter; Y83.8 Other surgical procedures as the cause of abnormal reaction of the patient, or of later complication, without mention of misadventure at the time of the procedure | CPT/HCPCS: G0463 ==

== ENCOUNTER 2023-04-20 03:12 | Day surgery (SDC) | payer OTHER | END 2023-04-21 00:06 | disposition home or self-care (01) | LOC: WOUND 03:12 | DX: L89.153 Pressure ulcer of sacral region, stage 3 (principal); S31.501D Unspecified open wound of unspecified external genital organs, male, subsequent encounter; X58.XXXD Exposure to other specified factors, subsequent encounter; N49.3 Fournier gangrene; E11.9 Type 2 diabetes mellitus without complications; F17.200 Nicotine dependence, unspecified, uncomplicated | CPT/HCPCS: G0463 ==

== ENCOUNTER 2023-05-11 02:49 | Day surgery (SDC) | payer OTHER | END 2023-05-11 22:52 | disposition home or self-care (01) | LOC: WOUND 02:49 | DX: L89.153 Pressure ulcer of sacral region, stage 3 (principal); S31.501D Unspecified open wound of unspecified external genital organs, male, subsequent encounter; N49.3 Fournier gangrene; X58.XXXD Exposure to other specified factors, subsequent encounter | CPT/HCPCS: G0463 ==

== ENCOUNTER 2023-05-25 03:39 | Day surgery (SDC) | payer OTHER | END 2023-05-26 00:06 | disposition home or self-care (01) | LOC: WOUND 03:39 | DX: T81.31XD Disruption of external operation (surgical) wound, not elsewhere classified, subsequent encounter (principal); L89.153 Pressure ulcer of sacral region, stage 3; N49.3 Fournier gangrene; F17.290 Nicotine dependence, other tobacco product, uncomplicated; E11.9 Type 2 diabetes mellitus without complications; Y83.8 Other surgical procedures as the cause of abnormal reaction of the patient, or of later complication, without mention of misadventure at the time of the procedure | CPT/HCPCS: G0463 ==

== ENCOUNTER 2023-06-08 00:51 | Day surgery (SDC) | payer OTHER | END 2023-06-08 23:14 | disposition home or self-care (01) | LOC: WOUND 00:51 | DX: T81.31XD Disruption of external operation (surgical) wound, not elsewhere classified, subsequent encounter (principal); L89.153 Pressure ulcer of sacral region, stage 3; S31.501D Unspecified open wound of unspecified external genital organs, male, subsequent encounter; N49.3 Fournier gangrene; Y83.8 Other surgical procedures as the cause of abnormal reaction of the patient, or of later complication, without mention of misadventure at the time of the procedure; X58.XXXD Exposure to other specified factors, subsequent encounter | CPT/HCPCS: G0463 ==

== ENCOUNTER 2023-08-24 04:12 | Day surgery (SDC) | payer OTHER | END 2023-08-25 23:05 | disposition home or self-care (01) | LOC: WOUND 04:12 | DX: L89.153 Pressure ulcer of sacral region, stage 3 (principal); S31.501D Unspecified open wound of unspecified external genital organs, male, subsequent encounter; N49.3 Fournier gangrene; X58.XXXD Exposure to other specified factors, subsequent encounter | CPT/HCPCS: G0463 ==

== ENCOUNTER 2023-09-07 05:19 | Day surgery (SDC) | payer OTHER | END 2023-09-07 22:43 | disposition home or self-care (01) | LOC: WOUND 05:19 | DX: T81.31XD Disruption of external operation (surgical) wound, not elsewhere classified, subsequent encounter (principal); L89.153 Pressure ulcer of sacral region, stage 3; S31.501D Unspecified open wound of unspecified external genital organs, male, subsequent encounter; N49.3 Fournier gangrene; Y83.8 Other surgical procedures as the cause of abnormal reaction of the patient, or of later complication, without mention of misadventure at the time of the procedure; X58.XXXD Exposure to other specified factors, subsequent encounter ==

== ENCOUNTER 2023-11-16 05:39 | Day surgery (SDC) | payer OTHER | END 2023-11-16 22:56 | disposition home or self-care (01) | LOC: WOUND 05:39 | DX: L89.153 Pressure ulcer of sacral region, stage 3 (principal); S31.501A Unspecified open wound of unspecified external genital organs, male, initial encounter; X58.XXXA Exposure to other specified factors, initial encounter; N49.3 Fournier gangrene; I10 Essential (primary) hypertension; E11.9 Type 2 diabetes mellitus without complications; G82.20 Paraplegia, unspecified; F17.200 Nicotine dependence, unspecified, uncomplicated | CPT/HCPCS: G0463 ==

== ENCOUNTER → 2024-01-28 | Outpatient (CLI) | payer OTHER | LOC: LAB 11:45 → LAB SHORT 11:45 | DX: L08.0 Pyoderma (principal) | CPT/HCPCS: 87070; 87077; 87147; 87186; 87205 ==

== ENCOUNTER 2024-02-15 02:04 | Day surgery (SDC) | payer OTHER | END 2024-02-15 23:00 | disposition home or self-care (01) | LOC: WOUND 02:04 | DX: T81.31XA Disruption of external operation (surgical) wound, not elsewhere classified, initial encounter (principal); I10 Essential (primary) hypertension; E11.9 Type 2 diabetes mellitus without complications; G82.20 Paraplegia, unspecified; F17.200 Nicotine dependence, unspecified, uncomplicated ==

== ENCOUNTER 2024-02-29 03:26 | Day surgery (SDC) | payer OTHER | END 2024-03-01 00:02 | disposition home or self-care (01) | LOC: WOUND 03:26 | DX: T81.31XD Disruption of external operation (surgical) wound, not elsewhere classified, subsequent encounter (principal); L89.153 Pressure ulcer of sacral region, stage 3; S31.501D Unspecified open wound of unspecified external genital organs, male, subsequent encounter; N49.3 Fournier gangrene; X58.XXXD Exposure to other specified factors, subsequent encounter; Y83.8 Other surgical procedures as the cause of abnormal reaction of the patient, or of later complication, without mention of misadventure at the time of the procedure | CPT/HCPCS: G0463 ==

== ENCOUNTER 2024-04-11 03:29 | Day surgery (SDC) | payer OTHER | END 2024-04-11 23:00 | disposition home or self-care (01) | LOC: WOUND 03:29 | DX: T81.31XD Disruption of external operation (surgical) wound, not elsewhere classified, subsequent encounter (principal); L89.153 Pressure ulcer of sacral region, stage 3; S31.501D Unspecified open wound of unspecified external genital organs, male, subsequent encounter; N49.3 Fournier gangrene; X58.XXXD Exposure to other specified factors, subsequent encounter; Y83.8 Other surgical procedures as the cause of abnormal reaction of the patient, or of later complication, without mention of misadventure at the time of the procedure | CPT/HCPCS: G0463 ==

== ENCOUNTER 2024-05-16 03:53 | Day surgery (SDC) | payer OTHER | END 2024-05-16 23:00 | disposition home or self-care (01) | LOC: WOUND 03:53 | DX: T81.31XD Disruption of external operation (surgical) wound, not elsewhere classified, subsequent encounter (principal); N49.3 Fournier gangrene; G83.4 Cauda equina syndrome; G82.20 Paraplegia, unspecified; E11.9 Type 2 diabetes mellitus without complications; F17.200 Nicotine dependence, unspecified, uncomplicated | CPT/HCPCS: G0463 ==

== ENCOUNTER 2024-05-30 03:57 | Day surgery (SDC) | payer OTHER | END 2024-05-30 23:00 | disposition home or self-care (01) | LOC: WOUND 03:57 | DX: L89.153 Pressure ulcer of sacral region, stage 3 (principal); S31.501D Unspecified open wound of unspecified external genital organs, male, subsequent encounter; N49.3 Fournier gangrene; E11.9 Type 2 diabetes mellitus without complications; F17.200 Nicotine dependence, unspecified, uncomplicated; X58.XXXD Exposure to other specified factors, subsequent encounter | CPT/HCPCS: G0463 ==

== ENCOUNTER 2024-06-20 03:54 | Day surgery (SDC) | payer OTHER | END 2024-06-20 23:00 | disposition home or self-care (01) | LOC: WOUND 03:54 | DX: T81.31XD Disruption of external operation (surgical) wound, not elsewhere classified, subsequent encounter (principal); L89.153 Pressure ulcer of sacral region, stage 3; S31.501D Unspecified open wound of unspecified external genital organs, male, subsequent encounter; N49.3 Fournier gangrene; Y83.8 Other surgical procedures as the cause of abnormal reaction of the patient, or of later complication, without mention of misadventure at the time of the procedure | CPT/HCPCS: G0463 ==

== ENCOUNTER 2024-07-01 18:51 | Emergency (ER) | payer OTHER ==
[~2024-07-01] VITALS: Ht 172.7 cm; Wt 59.0 kg
[2024-07-01 18:56] VITALS: BP 160/102
[2024-07-01 19:24] LABS: BASOPHILS ABSOLUTE AUTO 0.07 K/mm3 (0.00-0.23); BASOPHILS PERCENT AUTO 1 % (0-2); EOSINOPHILS ABSOLUTE AUTO 0.21 K/mm3 (0.00-0.68); EOSINOPHILS PERCENT AUTO 2 % (0-6); Hematocrit 36.7 % (37.0-53.0); Hemoglobin 12.9 g/dL (13.5-17.5); IMMATURE GRAN ABSOLUTE AUTO 0.05 K/mm3 (0.00-0.10); IMMATURE GRAN PERCENT AUTO 1 % (0-1); LYMPHOCYTES ABSOLUTE AUTO 2.23 K/mm3 (0.84-5.20); LYMPHOCYTES PERCENT AUTO 20 % (21-46); MONOCYTES ABSOLUTE AUTO 0.87 K/mm3 (0.16-1.47); MONOCYTES PERCENT AUTO 8 % (4-13); Mean Corpuscular HGB 30.9 pg (26.0-34.0); Mean Corpuscular HGB Conc 35.1 g/dL (31.5-36.5); Mean Corpuscular Volume 88 fL (80-100); Mean Platelet Volume 9.2 fL (9.1-12.4); NEUTROPHILS ABSOLUTE AUTO 7.62 K/mm3 (1.96-9.15); NEUTROPHILS PERCENT AUTO 69 % (41-73); Platelet Count 434 K/mm3 (150-400); RDW Coefficient Variation 12.6 % (11.7-14.2); RDW Standard Deviation 40.7 fL (35.1-46.3); Red Blood Cell Count 4.18 M/mm3 (4.30-5.90); White Blood Cell Count 11.05 K/mm3 (4.00-11.30)
[2024-07-01 19:49] LABS: Albumin, Blood 3.4 g/dL (3.4-5.0); Albumin/Globulin Ratio 0.8 (0.8-1.8); Bilirubin, Total 0.2 mg/dL (0.1-1.0); Bun/Creatinine Ratio 13.7 (12.0-20.0); Calcium, Blood 8.9 mg/dL (8.5-10.1); Creatinine, Blood 0.36 mg/dL (0.60-1.20); Globulin, Blood 4.4 g/dL (2.2-4.0); Potassium, Blood 3.7 mmol/L (3.5-5.5); Total Protein, Blood 7.8 g/dL (6.4-8.2)
== END 2024-07-01 20:54 | disposition home or self-care (01) ==
LOC: ER 18:51
PROVIDERS: Student in an Organized Health Care Education/Training Program
DX: K62.5 Hemorrhage of anus and rectum (principal); G82.20 Paraplegia, unspecified; I10 Essential (primary) hypertension; E11.9 Type 2 diabetes mellitus without complications; F17.210 Nicotine dependence, cigarettes, uncomplicated; Z79.84 Long term (current) use of oral hypoglycemic drugs; Z79.899 Other long term (current) drug therapy; Z99.3 Dependence on wheelchair
CPT/HCPCS: 80053; 82272; 85025; 99283

== ENCOUNTER 2024-07-11 04:10 | Day surgery (SDC) | payer OTHER | END 2024-07-11 23:00 | disposition home or self-care (01) | LOC: WOUND 04:10 | DX: T81.31XD Disruption of external operation (surgical) wound, not elsewhere classified, subsequent encounter (principal); G82.20 Paraplegia, unspecified; G83.4 Cauda equina syndrome; E11.9 Type 2 diabetes mellitus without complications; I10 Essential (primary) hypertension; F17.200 Nicotine dependence, unspecified, uncomplicated | CPT/HCPCS: G0463 ==

== ENCOUNTER 2024-07-23 01:51 | Day surgery (SDC) | payer OTHER ==
[2024-07-23] MEDS ORDERED: Lidocaine HCl 4% Cream 5 GM ONE (09:54)
== END 2024-07-23 23:00 | disposition home or self-care (01) ==
LOC: WOUND 01:51
DX: L89.153 Pressure ulcer of sacral region, stage 3 (principal); N49.3 Fournier gangrene; T81.31XA Disruption of external operation (surgical) wound, not elsewhere classified, initial encounter; Y83.8 Other surgical procedures as the cause of abnormal reaction of the patient, or of later complication, without mention of misadventure at the time of the procedure
CPT/HCPCS: A9270

== ENCOUNTER → 2024-07-23 | Outpatient (CLI) | payer OTHER | LOC: LAB SHORT 13:22 → LAB 13:22 | DX: N31.9 Neuromuscular dysfunction of bladder, unspecified (principal); R82.90 Unspecified abnormal findings in urine | CPT/HCPCS: 87077; 87086; 87186 ==

== ENCOUNTER 2024-08-08 03:38 | Day surgery (SDC) | payer OTHER ==
[2024-08-08] MEDS ORDERED: Lidocaine HCl 4% Cream 5 GM ONE (11:25)
== END 2024-08-08 23:00 | disposition home or self-care (01) ==
LOC: WOUND 03:38
DX: L89.153 Pressure ulcer of sacral region, stage 3 (principal); T81.31XD Disruption of external operation (surgical) wound, not elsewhere classified, subsequent encounter; G83.4 Cauda equina syndrome; G82.20 Paraplegia, unspecified; E11.9 Type 2 diabetes mellitus without complications; F17.200 Nicotine dependence, unspecified, uncomplicated
CPT/HCPCS: A9270; G0463

== ENCOUNTER 2024-08-22 02:57 | Day surgery (SDC) | payer OTHER | END 2024-08-22 23:00 | disposition home or self-care (01) | LOC: WOUND 02:57 | DX: L89.152 Pressure ulcer of sacral region, stage 2 (principal); S31.501D Unspecified open wound of unspecified external genital organs, male, subsequent encounter; X58.XXXD Exposure to other specified factors, subsequent encounter; N49.3 Fournier gangrene; E11.9 Type 2 diabetes mellitus without complications; F17.200 Nicotine dependence, unspecified, uncomplicated; G82.20 Paraplegia, unspecified | CPT/HCPCS: G0463 ==

== ENCOUNTER 2024-09-05 05:06 | Day surgery (SDC) | payer OTHER ==
[2024-09-05] MEDS ORDERED: Lidocaine HCl 4% Cream 5 GM ONE (11:24)
== END 2024-09-05 23:00 | disposition home or self-care (01) ==
LOC: WOUND 05:06
DX: L89.153 Pressure ulcer of sacral region, stage 3 (principal); S31.501D Unspecified open wound of unspecified external genital organs, male, subsequent encounter; X58.XXXD Exposure to other specified factors, subsequent encounter; N49.3 Fournier gangrene; E11.9 Type 2 diabetes mellitus without complications; F17.200 Nicotine dependence, unspecified, uncomplicated
CPT/HCPCS: A9270; G0463

== ENCOUNTER → 2024-09-17 | Outpatient (CLI) | payer OTHER ==
[2024-09-17 11:28] LABS: Source, Urine Suprapubic Cath
[2024-09-17 14:45] LABS: Appearance, Urine Hazy (Clear); Bilirubin, Urine Neg (Neg); Blood, Urine 1+ (Neg); Glucose Qualitative, Urine 4+ (Neg); Ketones, Urine Neg (Neg); Leukocyte Esterase, Urine 2+ (Neg); Nitrite, Urine Neg (Neg); Protein, Urine Neg (Neg); Urobilinogen, Urine NORM (Normal)
[2024-09-17 15:02] LABS: Color, Urine Pale Yellow (P-Yellow)
[2024-09-17 15:03] LABS: Bacteria Many /hpf; Red Blood Cells, Urine 0-2 /hpf (0-2); Squamous Epithelial Cells Rare /hpf (Few); Yeast/Fungi Urine Many /hpf
== END ==
LOC: LAB SHORT 11:26 → LAB 11:26
PROVIDERS: Nurse Practitioner Family
DX: Z93.59 Other cystostomy status (principal); R82.90 Unspecified abnormal findings in urine
CPT/HCPCS: 81001; 87077; 87086; 87186

== ENCOUNTER 2024-11-20 03:22 | Day surgery (SDC) | payer OTHER ==
[2024-11-20] MEDS ORDERED: Lidocaine HCl 4% Cream 5 GM ONE (07:58)
== END 2024-11-20 23:00 | disposition home or self-care (01) ==
LOC: WOUND 03:22
DX: L89.153 Pressure ulcer of sacral region, stage 3 (principal); N49.3 Fournier gangrene; Z88.5 Allergy status to narcotic agent
CPT/HCPCS: A9270

== ENCOUNTER 2024-12-13 00:35 | Day surgery (SDC) | payer OTHER ==
[2024-12-12 13:35] VITALS: BP 137/86
[~2024-12-13 00:35] MED LIST changes: +AMOCLA875 PO; +CEFTRIAXON1 GM/50 M1 IV; +GLIP10 PO; +INSULANPEN SC; +Inzo Antifun141.7 GM TOP; +METFORMIN HCL500 M3 PO; +METR500 PO
[2024-12-13] MEDS ORDERED: CefTRIAXone Sodium 1,000 MG in NS 100 ML IV SCH (06:00)
== END 2024-12-13 13:53 | disposition home or self-care (01) ==
LOC: ATC 00:35
DX: N45.4 Abscess of epididymis or testis (principal); G82.20 Paraplegia, unspecified; E11.9 Type 2 diabetes mellitus without complications; I10 Essential (primary) hypertension; G83.4 Cauda equina syndrome; Z87.891 Personal history of nicotine dependence; Z79.84 Long term (current) use of oral hypoglycemic drugs; Z79.899 Other long term (current) drug therapy
CPT/HCPCS: 96365; J0696

== ENCOUNTER 2024-12-19 00:19 | Day surgery (SDC) | payer OTHER | END 2024-12-19 23:00 | disposition home or self-care (01) | LOC: WOUND 00:19 | DX: L89.153 Pressure ulcer of sacral region, stage 3 (principal); T81.31XD Disruption of external operation (surgical) wound, not elsewhere classified, subsequent encounter; S30.813D Abrasion of scrotum and testes, subsequent encounter; X58.XXXD Exposure to other specified factors, subsequent encounter; N49.3 Fournier gangrene; G82.20 Paraplegia, unspecified; G83.4 Cauda equina syndrome; E11.9 Type 2 diabetes mellitus without complications; F17.200 Nicotine dependence, unspecified, uncomplicated | CPT/HCPCS: A6213; G0463 ==

== ENCOUNTER 2025-01-02 01:45 | Day surgery (SDC) | payer OTHER ==
[2025-01-02] MEDS ORDERED: Lidocaine HCl 4% Cream 5 GM ONE (08:33)
== END 2025-01-02 23:00 | disposition home or self-care (01) ==
LOC: WOUND 01:45
DX: L89.153 Pressure ulcer of sacral region, stage 3 (principal); S30.813D Abrasion of scrotum and testes, subsequent encounter; N49.3 Fournier gangrene; E11.9 Type 2 diabetes mellitus without complications; F17.200 Nicotine dependence, unspecified, uncomplicated; G82.20 Paraplegia, unspecified
CPT/HCPCS: A6213; A9270; G0463

== ENCOUNTER 2025-01-30 10:46 | Day surgery (SDC) | payer OTHER ==
[~2025-01-30 10:46] MED LIST changes: +Lidocaine HCl 4% Cream 5 GM ONE
== END 2025-01-30 23:00 | disposition home or self-care (01) ==
LOC: WOUND 10:46
DX: L89.153 Pressure ulcer of sacral region, stage 3 (principal); T81.31XD Disruption of external operation (surgical) wound, not elsewhere classified, subsequent encounter; N49.3 Fournier gangrene; E11.9 Type 2 diabetes mellitus without complications; G82.20 Paraplegia, unspecified; G83.4 Cauda equina syndrome; I10 Essential (primary) hypertension; F17.200 Nicotine dependence, unspecified, uncomplicated
CPT/HCPCS: A9270; G0463

== ENCOUNTER → 2025-02-11 | Outpatient (CLI) | payer OTHER ==
[~2025-02-11] MED LIST changes: -Lidocaine HCl 4% Cream 5 GM ONE
== END ==
LOC: LAB 11:42 → LAB SHORT 11:42
DX: H05.011 Cellulitis of right orbit (principal)
CPT/HCPCS: 87070; 87205

== ENCOUNTER 2025-03-06 00:29 | Day surgery (SDC) | payer OTHER | END 2025-03-06 23:00 | disposition home or self-care (01) | LOC: WOUND 00:29 | DX: N49.3 Fournier gangrene (principal); Z87.828 Personal history of other (healed) physical injury and trauma; G82.20 Paraplegia, unspecified; F17.200 Nicotine dependence, unspecified, uncomplicated | CPT/HCPCS: G0463 ==

== ENCOUNTER 2025-04-10 02:47 | Emergency (ER) | payer OTHER ==
[~2025-04-10] VITALS: Ht 175.3 cm; Wt 56.7 kg
[2025-04-10 06:45] VITALS: BP 118/71
== END 2025-04-10 06:40 | disposition home or self-care (01) ==
LOC: ER 02:47
DX: T59.811A Toxic effect of smoke, accidental (unintentional), initial encounter (principal); R06.02 Shortness of breath; F17.210 Nicotine dependence, cigarettes, uncomplicated; E11.9 Type 2 diabetes mellitus without complications; I10 Essential (primary) hypertension; Z79.84 Long term (current) use of oral hypoglycemic drugs; Z79.4 Long term (current) use of insulin; Z79.899 Other long term (current) drug therapy
CPT/HCPCS: 99283; A9270